=== PATIENT | female | born 1955 | race Caucasian/White ===

== ENCOUNTER 2025-03-27 19:05 | Emergency (ER) | payer MEDICARE, BC ==
[2025-03-27] MEDS: Ketorolac 30 MG/ML SDV IM ONE (20:14)
== END 2025-03-27 21:05 | disposition home or self-care (01) ==
LOC: JP.ED 19:05
DX: S46.911A Strain of unspecified muscle, fascia and tendon at shoulder and upper arm level, right arm, initial encounter (principal); Z88.0 Allergy status to penicillin; Z88.2 Allergy status to sulfonamides; Z88.5 Allergy status to narcotic agent; X58.XXXA Exposure to other specified factors, initial encounter
CPT/HCPCS: 73030; 96372; 99283; J1885